=== PATIENT | female | born 1950 | race Caucasian/White ===

== ENCOUNTER → 2021-05-10 10:40 | Outpatient (CLI) | payer MEDICARE, OTHER, SELFPAY | PROVIDERS: PCP Nurse Practitioner Family; Visit Provider Ophthalmology | DX: Z01.812 Encounter for preprocedural laboratory examination (principal); Z11.52 Encounter for screening for COVID-19 | CPT/HCPCS: C9803; U0003; U0005 ==

== ENCOUNTER 2021-05-11 09:07 | Day surgery (SDC) | payer MEDICARE, OTHER, SELFPAY ==
[2021-05-11 09:29] VITALS: BMI 62.3
[2021-05-11 09:48] VITALS: BP 145/45; PULSE 67; RESP 16; TEMP 36.3; O2SAT 98
[2021-05-11 10:50] VITALS: BP 123/79; PULSE 76; RESP 16; TEMP 36.6; O2SAT 97
[2021-12-30 10:57] LABS: POC Glucose,Bedside 181 (70-110)
== END 2021-05-11 11:00 | disposition home or self-care (01) ==
LOC: OUTP 09:09
PROVIDERS: PCP Nurse Practitioner Family; Visit Provider Ophthalmology
PROC: (CPT 66821; principal; 2021-05-11 09:00)
DX: H26.493 Other secondary cataract, bilateral (principal); Z96.1 Presence of intraocular lens; J45.909 Unspecified asthma, uncomplicated; J44.9 Chronic obstructive pulmonary disease, unspecified; E11.9 Type 2 diabetes mellitus without complications; I10 Essential (primary) hypertension; E78.5 Hyperlipidemia, unspecified; Z79.899 Other long term (current) drug therapy
CPT/HCPCS: 66821; 82962

== ENCOUNTER 2024-05-31 14:16 | Outpatient (RCR) | payer MEDICARE, OTHER, SELFPAY | END 2024-05-31 23:59 | disposition home or self-care (01) | LOC: PT 14:16 | PROVIDERS: PCP Nurse Practitioner Family; Visit Provider Nurse Practitioner | DX: I87.313 Chronic venous hypertension (idiopathic) with ulcer of bilateral lower extremity (principal); L97.211 Non-pressure chronic ulcer of right calf limited to breakdown of skin; L97.221 Non-pressure chronic ulcer of left calf limited to breakdown of skin | CPT/HCPCS: 97163; 97597; 97598 ==

== ENCOUNTER 2024-05-31 15:16 | Outpatient (CLI) | payer MEDICARE, OTHER, SELFPAY ==
[2024-05-31 15:46] LABS: Basophils # 0.1 K/mm3 (0-0.2); Basophils % 0.7 % (0.1-2.0); Eosinophils # 0.4 K/mm3 (0.0-0.4); Eosinophils % 5.1 % (0.1-12.0); Hematocrit 34.9 % (37.0-47.0); Hemoglobin 11.5 g/dL (12.2-16.2); Lymphocytes # 2.2 K/mm3 (0.7-4.5); Lymphocytes % 26.1 % (10-50); Mean Corpuscular Hemoglobin 28.7 pg (27.0-31.2); Mean Platelet Volume 9.4 fl (7.4-10.4); Monocytes # 0.8 K/mm3 (0.1-1.0); Neutrophils % 58.7 % (37.0-80.0); Platelet Count 284 K/mm3 (142-424); Red Blood Count 4.01 M/mm3 (4.20-5.40); Red Cell Distribution Width 12.7 % (11.5-17.5); White Blood Count 8.6 K/mm3 (4.8-10.8)
[2024-05-31 16:02] LABS: Alanine Aminotransferase 23 U/L (12-78); Albumin Level 4.1 g/dl (3.5-5.0); Albumin/Globulin Ratio 1.3 (1.1-1.8); Alkaline Phosphatase 82 U/L (38-126); Anion Gap 8.4 mEq/L (5-15); Aspartate Amino Transferase 26 U/L (14-36); Bilirubin,Total 0.8 mg/dl (0.2-1.3); Blood Urea Nitrogen 17 mg/dl (7-17); Calcium 9.4 mg/dl (8.4-10.2); Carbon Dioxide 30 mmol/L (22.0-30.0); Chloride 101 mmol/L (98-107); Chol/HDL Ratio 2.3 (1-3.5); Cholesterol 134 mg/dl (140-200); Estimated Glomerular Filt Rate 62 ml/min (>60); GFR (African American) 74 ML/MIN (>60); Globulin 3.1 g/dL (1.3-3.2); Glucose 175 mg/dl (74-100); HDL Cholesterol 59 mg/dl (40-60); Potassium 4.4 mmoL/L (3.5-5.1); Sodium 135 mmol/L (136-145); Total Protein,Serum 7.2 g/dl (6.3-8.2); Triglycerides 102 mg/dl (30-150); VLDL Cholesterol 20 mg/dL (0-40)
[2024-05-31 16:09] LABS: Hemoglobin A1C 7.4 % (4.0-6.0)
[2024-05-31 16:13] LABS: Direct LDL Cholesterol 44.47 mg/dL (100-129)
[2024-05-31 16:33] LABS: Thyroid Stimulating Hormone 1.97 uIU/mL (0.465-4.68)
[2024-05-31 16:45] LABS: 25-OH Vitamin D, Total 29.5 ng/mL (30-100)
[2024-05-31 16:46] LABS: Free Thyroxine Index 4.4 ug/dL (5.93-13.13); T4 (Thyroxine) 11.8 ug/dl (5.53-11.0); Triiodothryronine (T3) Uptake 37 % (23.5-40.5)
[2024-05-31 16:52] LABS: Vitamin B12 444 pg/mL (239-931)
[2024-05-31 17:13] LABS: Folate 8.75 ng/mL
== END 2024-05-31 23:59 | disposition home or self-care (01) ==
LOC: LAB 15:18
PROVIDERS: PCP Nurse Practitioner; Visit Provider Nurse Practitioner
DX: E55.9 Vitamin D deficiency, unspecified (principal); I10 Essential (primary) hypertension; E11.9 Type 2 diabetes mellitus without complications; Z79.84 Long term (current) use of oral hypoglycemic drugs
CPT/HCPCS: 36415; 80053; 80061; 82306; 82607; 82746; 83036; 84436; 84443; 84479; 85025

== ENCOUNTER 2024-06-06 15:13 | Outpatient (CLI) | payer MEDICARE, OTHER, SELFPAY ==
[2024-06-06 16:44] LABS: Glucose,Fasting 167 mg/dl (74-100)
== END 2024-06-06 23:59 | disposition home or self-care (01) ==
LOC: LAB 15:15
PROVIDERS: PCP Nurse Practitioner; Visit Provider Nurse Practitioner
DX: E11.9 Type 2 diabetes mellitus without complications (principal)
CPT/HCPCS: 82947

== ENCOUNTER 2024-07-01 15:00 | Outpatient (RCR) | payer MEDICARE, OTHER, SELFPAY | END 2024-07-01 23:59 | disposition home or self-care (01) | LOC: PT 15:00 | PROVIDERS: PCP Nurse Practitioner Family; Visit Provider Nurse Practitioner | DX: L89.90 Pressure ulcer of unspecified site, unspecified stage (principal) | CPT/HCPCS: 97597; 97598 ==

== ENCOUNTER 2024-07-04 15:49 | Outpatient (RCR) | payer MEDICARE, OTHER, SELFPAY | END 2024-07-04 23:59 | disposition home or self-care (01) | LOC: PT 15:49 | PROVIDERS: PCP Nurse Practitioner Family; Visit Provider Nurse Practitioner | DX: L89.90 Pressure ulcer of unspecified site, unspecified stage (principal) | CPT/HCPCS: 97760 ==

== ENCOUNTER 2024-11-04 10:29 | Outpatient (CLI) | payer MEDICARE, OTHER, SELFPAY ==
[2024-11-04 11:48] LABS: Hematocrit 36.8 % (37.0-47.0); Hemoglobin 12.0 g/dL (12.2-16.2); Immature Granulocytes % 0.3 %; Mean Corpuscular HGB Conc 32.6 g/dL (31.8-35.4); Mean Corpuscular Hemoglobin 29.0 pg (27.0-31.2); Mean Corpuscular Volume 88.9 fl (81-99); Nucleated Red Blood Cells % 0 %; Platelet Count 293 K/mm3 (142-424); Red Blood Count 4.14 M/mm3 (4.20-5.40); Red Cell Distribution Width-SD 42.9 fL; White Blood Count 7.8 K/mm3 (4.8-10.8)
[2024-11-04 12:39] LABS: Alanine Aminotransferase 17 U/L (12-78); Albumin Level 4.0 g/dl (3.5-5.0); Albumin/Globulin Ratio 1.5 (1.1-1.8); Alkaline Phosphatase 67 U/L (38-126); Anion Gap 9.7 mEq/L (5-15); Aspartate Amino Transferase 28 U/L (14-36); Bilirubin,Total 0.8 mg/dl (0.2-1.3); Blood Urea Nitrogen 34 mg/dl (7-17); Calcium 10.2 mg/dl (8.4-10.2); Carbon Dioxide 30 mmol/L (22.0-30.0); Chloride 101 mmol/L (98-107); Cholesterol 152 mg/dl (140-200); Creatinine,Serum 1.00 mg/dl (0.52-1.04); Estimated Glomerular Filt Rate 54 ml/min (>60); GFR (African American) 66 ML/MIN (>60); Globulin 2.7 g/dL (1.3-3.2); Glucose 183 mg/dl (74-100); Glucose,Fasting 183 mg/dl (74-100); HDL Cholesterol 63 mg/dl (40-60); Potassium 4.7 mmoL/L (3.5-5.1); Sodium 136 mmol/L (136-145); Total Protein,Serum 6.7 g/dl (6.3-8.2); Triglycerides 105 mg/dl (30-150)
[2024-11-04 12:48] LABS: Hemoglobin A1C 7.1 % (4.0-6.0)
[2024-11-04 12:55] LABS: 25-OH Vitamin D, Total 46.0 ng/mL (30-100)
== END 2024-11-04 23:59 | disposition home or self-care (01) ==
PROVIDERS: PCP Nurse Practitioner; Visit Provider Nurse Practitioner Family
DX: E78.5 Hyperlipidemia, unspecified (principal); E11.9 Type 2 diabetes mellitus without complications; E55.9 Vitamin D deficiency, unspecified; I10 Essential (primary) hypertension
CPT/HCPCS: 36415; 80053; 80061; 82306; 82652; 82947; 83036; 85025

== ENCOUNTER 2025-02-24 09:37 | Outpatient (CLI) | payer MEDICARE, OTHER, SELFPAY ==
--- NOTE | 2025-02-24 09:40 | MM_ITS ---
PROCEDURE INFORMATION: Exam: Bilateral Screening 3D Mammography Exam date and time: 02/24/2025 9:55 AM Age: 74 years old Clinical indication: Screening examination TECHNIQUE: Imaging protocol: Bilateral Screening tomosynthesis and 2D mammography including computer-aided detection (CAD) when performed. COMPARISON: 1. MG DMSB DIGITAL MAMM-SCREEN BILATERAL 06/21/2012 9:01 AM 2. 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 Mass: No suspicious masses. Architectural distortion: None. Calcifications: No suspicious calcifications. Asymmetric density: None. Skin thickening: None. Axillary adenopathy: None. IMPRESSION: No mammographic evidence of malignancy. Annual screening is recommended unless otherwise clinically indicated. ASSESSMENT: BI-RADS Category 1: Negative.
--- OUTSIDE RECORDS SUMMARY | 2025-02-24 09:42 | XMS_ITS ---
Author Organization Unknown TREATMENT PLAN Planned [facility] Start Date Provider Encounter for Check-up [id number] JJ Daigle
== END 2025-02-24 23:59 | disposition home or self-care (01) ==
LOC: RAD 09:38
PROVIDERS: PCP Nurse Practitioner; Visit Provider Nurse Practitioner Family
DX: Z12.31 Encounter for screening mammogram for malignant neoplasm of breast (principal); R92.323 Mammographic fibroglandular density, bilateral breasts
CPT/HCPCS: 77063; 77067